=== PATIENT | female | born 2005 | race Hispanic/Latino ===

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

== ENCOUNTER 2025-08-18 13:10 | Emergency (ER) | payer BC, OTHER ==
[2025-08-18 14:10] LABS: #Basophils Less than 0.03 10x3/uL (0.0-0.2); #Eosinophils 0.04 10x3/uL (0.0-0.5); #Monocytes 0.54 10x3/uL (0.0-1.1); #Neutrophils 6.54 10x3/uL (1.5-8.4); %Basophils 0.2 % (0.0-2.0); %Eosinophils 0.5 % (0.0-6.0); %Lymphocytes 19.0 % (18.0-47.0); %Monocytes 6.1 % (0.0-10.0); %Neutrophils 73.9 % (40.0-75.0); Hematocrit 36.5 % (34.9-44.5); Hemoglobin 11.3 g/dL (12.0-15.5); Mean Corpuscular Hemoglobin 25.4 pg (27.0-33.0); Mean Corpuscular Volume 82.0 fL (81.6-98.3); Platelet Count 474 10x3/uL (150-450); Red Blood Cell (RBC) Count 4.45 10x6/uL (3.90-5.03); White Blood Cell (WBC) Count 8.85 10x3/uL (3.5-10.5)
[2025-08-18 15:06] LABS: ALT (SGPT) 8 U/L (Less than 34); AST (SGOT) 22 U/L (11-34); Albumin 4.6 g/dL (3.1-4.5); Alkaline Phosphatase 86 U/L (40-100); Anion Gap 13 mmol/L (10-20); BUN (Urea Nitrogen) 9 mg/dL (8.4-21.0); Bilirubin, Total 0.5 mg/dL (0.3-1.2); Calc. Creatinine Clearance 0 mL/min (70-130); Calcium 9.5 mg/dL (7.8-10.44); Carbon Dioxide 22 mmol/L (22-29); Chloride 107 mmol/L (98-107); Globulin 3.3 g/dL (2.4-3.5); Glucose 86 mg/dL (70-105); Potassium 3.7 mmol/L (3.5-5.1); Sodium 138 mmol/L (136-145)
[2025-08-18 15:39] LABS: Specific Gravity, Urine 1.015 (1.005-1.030)
[2025-08-18 15:40] LABS: Leukocyte Negative (Negative); Protein, Urine (Dipstick) Trace mg/dL (Neg-Trace)
[2025-08-18 15:41] LABS: Glucose, Urine (Dipstick) Negative (Negative)
[2025-08-18 16:08] LABS: CAUTI Indications for Culture Pelvic or flank pain; WBC/HPF 0-3 HPF (0-3)
[2025-08-18 16:09] LABS: Bacteria/HPF 2+ HPF (None Seen); Mucous/LPF 1+ LPF (<2+)
[2025-08-18 16:10] LABS: Urine Culture Reflex No No
== END 2025-08-18 15:50 | disposition home or self-care (01) ==
LOC: CSHERS 13:10
DX: O03.4 Incomplete spontaneous abortion without complication (principal); F17.290 Nicotine dependence, other tobacco product, uncomplicated
CPT/HCPCS: 36415; 76856; 80053; 81001; 84702; 85025; 86900; 86901